=== PATIENT | female | born 1945 | race Caucasian/White ===

== ENCOUNTER 2018-10-25 10:59 | Inpatient (IN) ==
[2018-10-25] MEDS ORDERED: NS 1,000 ML IV ONE (11:17)
[2018-10-25] MEDS ORDERED: NS 500 ML IV ONE (11:18)
[2018-10-25 11:37] LABS: ALLEN TEST NO; BE 0.4 mmoll (-3.0-3.0); BLOOD TYPE ARTERIAL; HCO3-(ACT) 25.3 mmoll (20.0-26.0); METHB 1.3 % (0.0-1.5); O2(CT) 12.4 mL/dL (15.0-23.0); O2HB 96.8 % (95.0-99.0); PCO2(98.6) 27 mmHg (35-45); PO2(98.6) 96 mmHg (60-100); SAMPLE BLOOD; SAO2 99.1 % (95.0-100.0); pH(98.6) 7.53 (7.35-7.45)
[2018-10-25 11:38] LABS: MODALITY CANNULA
--- NOTE | 2018-10-25 11:54 | EKG Report ---
Test Performed on : 10/25/2018 11:40:56 AM Test Reason : SOB Blood Pressure : / mmHG Vent. Rate : 109 BPM Atrial Rate : 109 BPM P-R Int : 132 ms QRS Dur : 146 ms QT Int : 398 ms P-R-T Axes : 010 -54 108 degrees QTc Int : 535 ms Sinus tachycardia. Left axis deviation Left bundle branch block Abnormal ECG When compared with ECG of 05-JUN-2017 14:12, premature ventricular complexes. are no longer present Left bundle branch block is now present Criteria for Anterior infarct are no longer present Unconfirmed Result
[2018-10-25 11:56] LABS: URINE SOURCE CLEAN CATCH
[2018-10-25 12:00] LABS: BILIRUBIN URINE NEGATIVE (NEGATIVE); BLOOD URINE NEGATIVE (NEGATIVE); COLOR YELLOW; GLUCOSE URINE NEGATIVE (NEGATIVE); KETONE URINE NEGATIVE (NEGATIVE); LEUKOCYTES URINE TRACE (NEGATIVE); NITRITE URINE NEGATIVE (NEGATIVE); PROTEIN URINE TRACE mg/dL (NEGATIVE); SP GRAVITY URINE 1.021; TURBIDITY URINE HAZY (CLEAR); UROBILINOGEN URINE NORMAL (NORMAL)
[2018-10-25] MEDS ORDERED: TYLENOL PO ONE (12:07)
[2018-10-25 12:12] LABS: AGAP 12; ALB/GLOB RATIO 2.3; ALBUMIN 4.1 g/dL (3.5-5.0); ALKALINE PHOSPHATASE 50 U/L (32-104); BUN 14 mg/dL (8-22); CALCIUM 7.9 mg/dL (8.8-10.2); CHLORIDE 100 mmol/L (98-107); COSMO 270; CREATININE 0.5 mg/dL (0.5-0.9); ESTIMATED GFR > 60; GLUCOSE 129 mg/dL (70-104); GOT 18 U/L (10-30); GPT 13 U/L (10-36); SODIUM 134 mmol/L (136-145); TCO2 22 mmol/L (25-35); TOTAL BILIRUBIN 0.26 mg/dL (0.20-1.00); TOTAL PROTEIN 5.9 g/dL (6.3-8.3)
[2018-10-25 12:14] LABS: UR EPITHELIAL CELLS <10 /HPF (<10); URINE BACTERIA NEGATIVE /HPF; URINE RBC TNTC /HPF (<10); URINE WBC <10 /HPF (<10)
[2018-10-25 12:15] LABS: BASO# 0.03 X1000 (0.0-0.2); BASO% 0.7 % (0.0-0.8); EOS# 0.02 X1000 (0.0-0.7); EOS% 0.5 % (0.0-10.0); HEMATOCRIT 27.1 % (37.0-47.0); HEMOGLOBIN 8.7 g/dL (12.0-16.0); IMM GRAN# 0.04 X1000 (0.0-0.04); IMM GRAN% 0.9 % (0.0-0.5); LYMPH# 0.38 X1000 (1.2-3.4); LYMPH% 8.7 % (20.5-51.1); MCH 30.3 PG (27-31); MCHC 32.1 g/dL (33-37); MCV 94.4 FL (81-99); MONO# 0.53 X1000 (0.11-0.59); MONO% 12.2 % (1.7-9.3); MPV 9.5 FL (7.4-10.4); NEUT# 3.36 X1000 (1.4-6.5); PLT 313 X1000 (130-400); RBC 2.87 XMIL (4.2-5.4); WBC 4.36 X1000 (4.8-10.8)
[2018-10-25 12:18] LABS: URINE CASTS NONE SEEN; URINE CRYSTALS NONE SEEN; URINE SMALL ROUND CELLS TRANS PRESENT; URINE YEAST NONE SEEN
[2018-10-25 12:28] LABS: INR 1.02; PROTIME 13.5 Seconds (11.0-16.0)
[2018-10-25 12:29] LABS: PTT 32.2 Seconds (22.3-41.8)
--- NOTE | 2018-10-25 12:32 | PROVIDER DOCUMENTATION ---
This chart was entered by Marti Keith Scribe, acting as scribe for Edward Myers MD. HPI-Fever - General Chief Complaint: Fever Stated Complaint: DR ROBB REFERRED Time Seen by Provider: 10/25/18 11:14 Source: patient Allergies/Adverse Reactions: Patient Allergies Allergy/AdvReac Type Severity Reaction Status Date / Time tape Allergy RASH Uncoded 10/25/18 12:03 Home Medications: Home Medication List Medication Instructions Recorded Confirmed Last Taken Type Venlafaxine E.r. [Effexor Xr] 150 mg PO DAILY 05/29/17 11/09/17 07/09/17 04:00 History 150 Hydrocodone/APAP 7.5 mg/325 mg 1 ea PO Q4H PRN PRN #60 tab 06/13/17 11/09/17 07/08/17 20:00 Rx [[place]-7.5] 1 Alprazolam [Xanax] 0.25 mg PO TID PRN PRN 07/06/17 11/09/17 07/08/17 18:00 History 0.25 Doxycycline 100 mg PO DAILY 07/06/17 11/09/17 07/09/17 04:00 History 100 Meloxicam [Mobic] 7.5 mg PO DAILY 07/06/17 11/09/17 07/06/17 History 7.5 Methocarbamol [Robaxin-750] 750 mg PO BID PRN PRN 07/06/17 11/09/17 07/08/17 02:00 History 750 - History of Present Illness-Fever Nature of Presenting Problem: Patient is a 72 year old female who presents with fever, shortness of breath, cough, neck pain, and weakness. States symptoms started last night. Reports history of bilateral lung cancer and emphysema. Denies urinary symptoms. Fever Severity/Quality: reports: greater than 102 F Onset/Duration: reports: last night Timing: reports: still present Severity: reports: mild Context: reports: other (bilateral lung cancer) Cognitive Baseline: alert, oriented x3 Associated Symptoms: reports: back/neck pain (neck pain), cough, shortness of breath, weakness Similar Symptoms Previously?: Yes Recently seen or treated by another doctor?: Yes - Glascow Coma Score Best Eye Response ([place]): (4) open spontaneously Best Verbal Response ([place]): (5) oriented Best Motor Response ([place]): (6) obeys commands [place] Total: 15 Review of Systems - Adult - REVIEW OF SYSTEMS - ADULT Constitutional: reports: see HPI, fever. denies: chills, fatique Eyes: reports: no symptoms reported Ears, Nose, Mouth & Throat: reports: no symptoms reported Cardiovascular: reports: no symptoms reported Respiratory: reports: see HPI, cough, shortness of breath. denies: wheezing Gastrointestinal: reports: no symptoms reported Genitourinary: reports: no symptoms reported. denies: dysuria, hematuria, urinary retention Musculoskeletal: reports: see HPI, muscle weakness, neck pain. denies: back pain Integumentary: reports: no symptoms reported Neurological: reports: numbness (bilateral hands and feet). denies: headache/migraines, paresthesia Psychiatric: reports: no symptoms reported Endocrine: reports: no symptoms reported Hematologic/Lymphatic: reports: no symptoms reported Allergic/Immunologic: reports: no symptoms reported All Other Systems: Reviewed and Negative Past History - Adult - PAST MEDICAL HISTORY-ADULT Review of Records: reports: Old Records Reviewed, Nursing Assessment Review, Medications Reviewed, Social history reviewed & non-contributory. Major Childhood Illnesses: reports: denies history Cardiovascular: reports: denies history Respiratory: reports: cancer (bilateral lungs), other (emphysema) Gastrointestinal: reports: denies history Obstetrical/Gynecological: reports: denies history Genitourinary: reports: denies history Musculoskeletal: reports: denies history Neurological: reports: denies history Psychiatric: reports: denies history Endocrine/Immune: reports: denies history Other Conditions: reports: other cancer (stage 4 etastatic breast CA-mets to spine, lungs and bones) - PRIOR SURGERIES/PROCEDURES Surgical/Procedure History: reports: reviewed, not pertinent - IMMUNIZATION STATUS Childhood Immunizations: See Nurse Assessment Flu Vaccine: See Nurse Assessment - FAMILY HISTORY Family History: reviewed, not pertinent - SOCIAL HISTORY Smoking: denies Substance Use: denies Physical Exam-General - PHYSICAL EXAM-ADULT Initial Vital Signs Reviewed: Yes - CONSTITUTIONAL General Appearance: alert, mild distress, thin. negative: lethargic - EYES Eyes: PERRL/EOMI. negative: scleral icterus, sunken eyes - HEAD, EARS, NOSE, MOUTH & THROAT HENMT: normocephalic/atraumatic, moist mucous membranes, pharynx normal. negative: angioedema - RESPIRATORY Respiratory: chest non-tender, decreased breath sounds (left). negative: crackles, rhonchi - CARDIOVASCULAR Cardiovascular: normal peripheral pulses, regular rate, rhythm. negative: tachycardia - GASTROINTESTINAL (ABDOMEN) Abdominal Exam: normal bowel sounds, non tender, soft. negative: guarding - MUSCULOSKELETAL Extremity: normal inspection. negative: deformity, erythema - SKIN Integumentary: normal color, normal turgor, warm/dry. negative: cyanosis, jaundice - NEUROLOGIC Neurologic: grossly normal. negative: aphasia, facial droop - PSYCHIATRIC Psych/Mental Status: normal mood/affect, oriented x 3. negative: anxious Progress - PLAN OF CARE/RESULTS Progress/Plan/Lab Results: Vital Signs - 8 hr 10/25/18 11:05 10/25/18 11:16 10/25/18 11:18 Temperature 102.2 F H Pulse Rate 75 125 H 123 H Respiratory Rate 20 20 16 Blood Pressure 89/49 86/63 O2 Sat by Pulse Oximetry 97 87 L 87 L 10/25/18 11:38 10/25/18 11:50 10/25/18 11:51 Temperature Pulse Rate 110 H 108 H 106 H Respiratory Rate 18 14 15 Blood Pressure 86/63 96/62 O2 Sat by Pulse Oximetry 99 99 98 10/25/18 12:00 Temperature Pulse Rate 104 H Respiratory Rate 18 Blood Pressure O2 Sat by Pulse Oximetry 99 Laboratory Results - last 24 hr 10/25/18 10/25/18 10/25/18 11:24 11:30 11:30 WBC 4.36 L RBC 2.87 L Hgb 8.7 L Hct 27.1 L MCV 94.4 MCH 30.3 MCHC 32.1 L RDW Std Deviation 16.0 H Plt Count 313 MPV 9.5 Immature Gran % (Auto) 0.9 H Neut % (Auto) 77.0 H Lymph % (Auto) 8.7 L Gregg % (Auto) 12.2 H Eos % (Auto) 0.5 Baso % (Auto) 0.7 Immature Gran # (Auto) 0.04 Neut # (Auto) 3.36 Lymph # (Auto) 0.38 L Gregg # (Auto) 0.53 Eos # (Auto) 0.02 Baso # (Auto) 0.03 PT INR PTT (Actin FS) Specimen Type ARTERIAL Sample Site R BRACHIAL pH 7.53 H pCO2 27 L pO2 96 HCO3 25.3 Base Excess 0.4 Oxyhemoglobin 96.8 ABG O2 Sat (Calculated) 12.4 L ABG O2 Saturation 99.1 ABG Carboxyhemoglobin 1.00 ABG Methemoglobin 1.3 Nish Test NO A-a O2 Difference 70.0 Total Hemoglobin 9.0 L Lactate 1.20 Liter Flow 2.0 Blood Gas Modality CANNULA FiO2 % 28.0 Sodium Potassium Chloride Carbon Dioxide Anion Gap BUN Creatinine Estimated GFR/1.73 m2 BUN/Creatinine Ratio Glucose POC Glucose 121 H Calculated Osmolality Calcium Total Bilirubin AST ALT Alkaline Phosphatase Troponin T Total Protein Albumin Globulin Albumin/Globulin Ratio Plasma Lactate Urine Source Urine Color Urine Turbidity Urine pH Ur Specific [place] Urine Protein Ur Glucose (Stick) Ur Ketones (Stick) Urine Blood Urine Nitrite Urine Bilirubin Urobilinogen Dipstick Urine Leukocytes Urine WBC (Auto) Urine RBC (Auto) U Epithel Cells (Auto) Urine Bacteria (Auto) Urine Crystals Small Round Cells Urine Casts Urine Yeast-like Cells 10/25/18 10/25/18 10/25/18 11:30 11:30 11:30 WBC RBC Hgb Hct MCV MCH MCHC RDW Std Deviation Plt Count MPV Immature Gran % (Auto) Neut % (Auto) Lymph % (Auto) Gregg % (Auto) Eos % (Auto) Baso % (Auto) Immature Gran # (Auto) Neut # (Auto) Lymph # (Auto) Gregg # (Auto) Eos # (Auto) Baso # (Auto) PT INR PTT (Actin FS) Specimen Type Sample Site pH pCO2 pO2 HCO3 Base Excess Oxyhemoglobin ABG O2 Sat (Calculated) ABG O2 Saturation ABG Carboxyhemoglobin ABG Methemoglobin Nish Test A-a O2 Difference Total Hemoglobin Lactate Liter Flow Blood Gas Modality FiO2 % Sodium 134 L Potassium 4.0 Chloride 100 Carbon Dioxide 22 L Anion Gap 12 BUN 14 Creatinine 0.5 Estimated GFR/1.73 m2 > 60 BUN/Creatinine Ratio 28 Glucose 129 H POC Glucose Calculated Osmolality 270 Calcium 7.9 L Total Bilirubin 0.26 AST 18 ALT 13 Alkaline Phosphatase 50 Troponin T < 0.010 Total Protein 5.9 L Albumin 4.1 Globulin 1.8 Albumin/Globulin Ratio 2.3 Plasma Lactate 1.3 Urine Source Urine Color Urine Turbidity Urine pH Ur Specific [place] Urine Protein Ur Glucose (Stick) Ur Ketones (Stick) Urine Blood Urine Nitrite Urine Bilirubin Urobilinogen Dipstick Urine Leukocytes Urine WBC (Auto) Urine RBC (Auto) U Epithel Cells (Auto) Urine Bacteria (Auto) Urine Crystals Small Round Cells Urine Casts Urine Yeast-like Cells 10/25/18 10/25/18 11:30 11:49 WBC RBC Hgb Hct MCV MCH MCHC RDW Std Deviation Plt Count MPV Immature Gran % (Auto) Neut % (Auto) Lymph % (Auto) [place] % (Auto) Eos % (Auto) Baso % (Auto) Immature Gran # (Auto) Neut # (Auto) Lymph # (Auto) Gregg # (Auto) Eos # (Auto) Baso # (Auto) PT 13.5 INR 1.02 PTT (Actin FS) 32.2 Specimen Type Sample Site pH pCO2 pO2 HCO3 Base Excess Oxyhemoglobin ABG O2 Sat (Calculated) ABG O2 Saturation ABG Carboxyhemoglobin ABG Methemoglobin Nish Test A-a O2 Difference Total Hemoglobin Lactate Liter Flow Blood Gas Modality FiO2 % Sodium Potassium Chloride Carbon Dioxide Anion Gap BUN Creatinine Estimated GFR/1.73 m2 BUN/Creatinine Ratio Glucose POC Glucose Calculated Osmolality Calcium Total Bilirubin AST ALT Alkaline Phosphatase Troponin T Total Protein Albumin Globulin Albumin/Globulin Ratio Plasma Lactate Urine Source CLEAN CATCH Urine Color YELLOW Urine Turbidity HAZY Urine pH 6.0 Ur Specific [place] 1.021 Urine Protein TRACE A Ur Glucose (Stick) NEGATIVE Ur Ketones (Stick) NEGATIVE Urine Blood NEGATIVE Urine Nitrite NEGATIVE Urine Bilirubin NEGATIVE Urobilinogen Dipstick NORMAL Urine Leukocytes TRACE A Urine WBC (Auto) <10 Urine RBC (Auto) TNTC A U Epithel Cells (Auto) <10 Urine Bacteria (Auto) NEGATIVE Urine Crystals NONE SEEN Small Round Cells TRANS PRESENT Urine Casts NONE SEEN Urine Yeast-like Cells NONE SEEN Orders Category Date Time Status Cardiac Monitoring DIRECTED Care 10/25/18 12:00 Active Finger Stick Blood Sugar (ED) DIRECTED Care 10/25/18 11:15 Active Notify MD of + Sepsis Screen NOW Care 10/25/18 12:00 Active Notify Physician As Ordered Care 10/25/18 12:00 Active Nursing- Obtain EKG ONCE Care 10/25/18 11:15 Active Saline Loc NOW Care 10/25/18 11:15 Active ABG [RESP] Routine Lab 10/25/18 11:30 Completed BLOOD CULTURE [BLDCUL] Stat Lab 10/25/18 11:35 Received CBC WITH DIFF [HEME] Stat Lab 10/25/18 11:30 Completed CK PROFILE [SP CHEM] Stat Lab 10/25/18 11:30 Received COMPREHENSIVE METABOLIC PANEL [CHEM] Stat Lab 10/25/18 11:30 Completed LACTATE, PLASMA [CHEM] Lab 10/25/18 14:30 Uncollected LACTATE, PLASMA [CHEM] Lab 10/25/18 17:30 Uncollected LACTATE, PLASMA [CHEM] Stat Lab 10/25/18 11:30 Completed PROTIME WITH INR [COAG] Stat Lab 10/25/18 11:30 Completed PTT [COAG] Stat Lab 10/25/18 11:30 Completed TROPONIN T Stat Lab 10/25/18 11:30 Completed UA NIMS W/REFLEX CULT [URINALYSIS] Stat Lab 10/25/18 11:49 Completed URINE MANUAL MICROSCOPIC [URINALYSIS] Stat Lab 10/25/18 11:49 Completed 0.9% Sodium Chloride Inj [Ns] 1,000 ml Med 10/25/18 11:17 Discontinued IV 999 mls/hr 0.9% Sodium Chloride Inj [Ns] 500 ml Med 10/25/18 11:18 Discontinued IV 999 mls/hr Acetaminophen [Tylenol] Med 10/25/18 12:07 Discontinued 1,000 mg PO NOW ONE Oxygen Device Stat Oth 10/25/18 11:15 Active Oxygen Device Stat Oth 10/25/18 12:00 Active EKG [EKG] Stat Ther 10/25/18 11:15 Draft 1157 - Radiology spoke with Dr. Myers about patient. Radiology states patient had a 2 view chest xray earlier today that showed left perihilar mass similar in size and severe emphysema. 1214 - Dr. Haq in ED to see patient. Result Diagrams: 10/25/18 11:30 10/25/18 11:30 - EKG 1 Time of EKG reading by physician:: 11:40 EKG Read and Signed by:: Edward Myers EKG Interpretation (*Must complete 3 of following elements*): Abnormal Rate: 109 Rhythm: sinus tachycardia [place]: left QRS: LBB HI Interval: normal Comments: abnormal ECG Departure - Departure Date of Disposition Decision: 10/25/18 Time of Disposition Decision: 12:31 DIAGNOSIS: Metastatic breast cancer, Fever, Sepsis Disposition: ADMITTED INPATIENT 09 Certified Medical Emergency: Emergent Condition: Fair Referrals and Follow-Ups: Nish Haq MD [Primary Care Provider] - - Critical Care Note This patient required my direct & personal management of CC.: Yes Total Time (mins): 45 Critical Care Statement: This patient required my direct personal management to treat or rule out processes, the absence of which, could potentiallly result in sudden, clinically significant life or limb threatening deterioration. Attestation - Physician/ VERONICA Attestation The physician spent face to face time with patient:: Yes Advanced Practice Provider documentation review:: Supervising physician onsite and consulted in the evaluation and care of this patient. The physician did have a face to face encounter with the patient. This chart was documented by the indicated scribe, (Marti Keith, Aaron) and accurately reflects the services I performed and decisions made by me, Edward Myers MD, as attested by the provider's signature.
--- NOTE | 2018-10-25 13:07 | HISTORY AND PHYSICAL ---
HISTORY OF PRESENT ILLNESS: Ms. Castillo is a 72-year-old female who presented to the hospital. I think she had called Dr. Argentina King. She was having fever and was aching all over all of her joints, migratory arthralgia. Denies any real dysuria or cough or pleuritic pain. PAST MEDICAL HISTORY: 1. Stage IV metastatic breast cancer with metastasis to the lungs and spine and the bones, receiving palliative chemotherapy. Has had a lot of pain, especially in the cervical spine. 2. She has a history of gastroesophageal reflux. 3. History of depression. PAST SURGICAL HISTORY: 1. Right knee surgery. 2. Has had a left mastectomy with reconstruction. 3. Lumbar spine surgery x2. 4. Appendectomy. FAMILY HISTORY: Really noncontributory. No history of heart or lung issues. SOCIAL HISTORY: Currently she lives with her . She has lost weight over the last year and she is in more pain. She is still on palliative therapy under Dr. Argentina King's direction. ALLERGIES: No known drug allergies. REVIEW OF SYSTEMS: General: No weight gain or loss acutely, but has slowly lost some weight. Decreased appetite. HEENT: No change in her visual or hearing acuity. No neck pain. Respiratory: No increased work of breathing or dyspnea. Cardiovascular: No chest pain or tachy palpitation. Gastrointestinal: Unremarkable. Genitourinary: Unremarkable. Musculoskeletal/neurologic: Just general aching and malaise. Endocrinologic/hematologic: No significant history. PHYSICAL EXAMINATION: VITAL SIGNS: Temperature was a 102.2 degrees, pulse 104, respirations 18, blood pressure 96/62. HEENT: Pupils are equal round. LUNGS: Clear in all lung carrillo. CARDIOVASCULAR: Regular rhythm and rate without murmur or S3. ABDOMEN: Soft. SKIN: Warm and dry. I did not see any rash. No nasal mucosa lesions. NECK: Supple. I did not appreciate lymphadenopathy. LABORATORY DATA: White count is 4360, hematocrit 27, hemoglobin 8.7, platelet count 313,000. Sodium 134, potassium 4.0, chloride 100, BUN 14, creatinine 0.5, calcium 7.9. AST 18, ALT 13. Urinalysis unremarkable. She does have syn-nprhppyk-rm-count red blood cells, less than 10 white blood cells. Blood gas: pH of 7.53, pCO2 27, PO2 is 96, O2 saturation is 99%, this is on FiO2 of 28%. HOME MEDICATIONS: 1. Xanax 0.25 mg t.i.d. p.r.n. 2. Doxycycline 100 mg daily. 3. Hydrocodone 7.5 she takes q.4 hours. 4. Mobic 7.5 mg a day. 5. Robaxin 750 mg b.i.d. p.r.n. 6. Effexor XR 150 mg daily. ASSESSMENT AND PLAN: 1. She appears to have infection and I am going to treat her for possible sepsis as well. I am going to put her on cefepime and Zyvox I believe, although renal function looks good, so I will use vancomycin and cefepime. We will get blood cultures and urine culture. X-ray does not really reveal anything unchanged, but treat her for possible pneumonia. 2. Stage IV metastatic breast cancer and having a lot of pain. We will give her her hydrocodone and give her morphine as well. 3. Protein calorie malnutrition, losing weight. Encourage p.o. intake. Dr. Argentina King will be following and I will probably get Dr. Imtiaz Page as well to follow for Infectious Disease. cc: Nish Haq MD
[2018-10-25] MEDS ORDERED: ROBAXIN PO PRN (13:42)
[2018-10-25] MEDS ORDERED: VANCOMYCIN 1 GM/NS 1 GM/250 ML IVPB IV ONE (13:42)
[2018-10-25] MEDS ORDERED: TYLENOL PO PRN (13:42)
[2018-10-25] MEDS: ZOFRAN IV PRN ×2 (14:06→17:53)
[2018-10-25] MEDS: MORPHINE IV PRN ×3 (14:06→21:50)
[2018-10-25] MEDS: NS 1,000 ML IV SCH (14:35)
[2018-10-25] MEDS: MAXIPIME 2 GM in NS 100 ML IV SCH (14:55)
[2018-10-25] MEDS: VANCOMYCIN 1,000 MG in NS 250 ML IV SCH (15:37)
--- NOTE | 2018-10-25 17:36 | Diag Imaging Result Doc PS360 ---
EXAM: CT THORAX W/O CONTRAST 10/25/2018 HISTORY: possible pneumonia TECHNIQUE: This exam was performed using automated exposure control, adjustment of mA or kV according to patient size, and/or use of iterative reconstruction technique. COMMENT: The current study is compared with the previous examination of 06/01/2017. There are patchy opacities in both lower lobes particularly in the superior segment and parahilar region of the left lower lobe and left upper lobe. This is worse than on the previous study. There is increased density in the mediastinal fat particularly around the left hilum. The possibility of neoplastic disease cannot be excluded. There are bilateral pleural effusions. There are multiple lucencies in the liver which appear to be similar to the previous examination. There is scoliosis of the thoracolumbar spine with convexity to the right. There are multiple sclerotic lesions present particularly at T1 and T2 consistent with osteoblastic metastatic disease. This was also present at the time the previous study. IMPRESSION: Patchy pneumonia which may be superimposed on neoplastic disease, possibly also on post radiation change particularly in the left lung. Stable osseous metastatic disease. Worsened bilateral pleural effusions. Electronically signed by Vincent Fernando 10/25/2018 5:33 PM
--- NOTE | 2018-10-25 19:10 | INFECTIOUS DISEASE CONSULT REP ---
DATE: 10/25/2018 CONCLUSION: The patient is admitted to the hospital with fever and cough. I think she could have pneumonia. RECOMMENDATIONS: I agree with treating the patient with vancomycin and cefepime. I have ordered a noncontrasted CT scan of the chest also. PRESENT ILLNESS: The patient has been having cough but without producing any sputum. She has had a fever and she has been having pain in her bones and joints. Two days ago she had diarrhea but that is cleared. Her lab studies show a CBC with a white count of 4360, hemoglobin 8.7, platelet count 313,000. Blood gases show a pH of 7.53, a PO2 of 96 and a pCO2 of 27. The creatinine is 0.5. GFR is greater than 60. Liver function studies are normal. Urinalysis showed red cells but no white cells or bacteria. Blood and urine cultures are pending. 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 She has had a hysterectomy and bilateral salpingo-oophorectomy. PREVIOUS HOSPITALIZATIONS AND OPERATIONS: She has had 3 labor and deliveries, hysterectomy, bilateral salpingo-oophorectomy, a right total knee arthroplasty, a left mastectomy with reconstruction, lumbar spine surgery x2, appendectomy. The patient also had admission for a bowel obstruction secondary to adhesions. MEDICAL DISEASES: Positive for stage IV metastatic breast cancer with metastasis to the lungs, spine, and bones. The patient is receiving palliative chemotherapy. The patient also has gastroesophageal reflux disease, history of depression, hypertension which has cleared, and tachycardia. HISTORY/REVIEW OF SYSTEMS: Eyes and ears: She can hear and see okay. Neck: No stiffness. Respiratory: See present illness. Cardiac: No palpitations or chest pain other than the generalized pain she is having. GI: The patient 2 days ago had some diarrhea but it has cleared and she is not vomiting. : No dysuria or flank pain. FAMILY HISTORY: Positive for diabetes mellitus, hypertension, stroke and cancer. SOCIAL HISTORY: The patient lives with her . She does not have any pets at home. She does not smoke cigarettes, drink alcoholic beverages or abuse drugs. ALLERGIES: She has no known drug allergies. HOME MEDICATIONS: Include Xanax, aspirin, Xgeva, Monurol, furosemide, hydrocodone, Corlanor, Robaxin, MS Contin and Effexor. PHYSICAL EXAMINATION: Vital Signs: Temperature was 102, now it looks like it is 100.5, pulse is close to 100, respiratory rate is 30, blood pressure is 110/60. Patient is 5 feet 4 inches tall, weighs 103 pounds. General: This is a ill-appearing elderly female. She is in no acute distress. Head/eyes/ears/nose/throat: She can hear my spoken words and see near objects. I did not see any white patches in her mouth. Neck: No meningismus. Lungs: There were distant heart tones. I did not hear any rales or wheezes. Cardiovascular: Heart rate is regular. Abdomen: Soft and nontender. Neurologic: The patient is alert. She can move her extremities. There is no tremor. Her sensation is intact to touch. Her memory as regarding her medical history seems to be intact. Thank you for the consult. cc: Manuel Page MD
[2018-10-25] MEDS: NORCO-7.5 PO PRN ×2 (20:31→23:53)
[2018-10-25] MEDS: ROBAXIN PO PRN (20:32)
[2018-10-25] MEDS ORDERED: XOPENEX NEB INH ONE (21:08)
[2018-10-26] MEDS: MORPHINE IV PRN ×5 (02:06→23:16)
[2018-10-26] MEDS: MAXIPIME 2 GM in NS 100 ML IV SCH ×2 (02:12→14:29)
[2018-10-26] MEDS: ZOFRAN IV PRN ×2 (02:15→06:35)
[2018-10-26] MEDS: NS 1,000 ML IV SCH (03:02)
[2018-10-26] MEDS ORDERED: LASIX IV ONE (03:03)
[2018-10-26] MEDS ORDERED: XOPENEX NEB INH ONE (03:04)
[2018-10-26] MEDS ORDERED: PHENERGAN PO ONE (03:05)
[2018-10-26] MEDS ORDERED: AMBIEN PO ONE (03:07)
[2018-10-26] MEDS ORDERED: NS NEB INH SCH ×2 (03:15→09:15)
[2018-10-26 05:54] LABS: BASO# 0.03 X1000 (0.0-0.2); BASO% 0.5 % (0.0-0.8); EOS# 0.02 X1000 (0.0-0.7); EOS% 0.3 % (0.0-10.0); HEMATOCRIT 27.7 % (37.0-47.0); IMM GRAN# 0.04 X1000 (0.0-0.04); IMM GRAN% 0.6 % (0.0-0.5); LYMPH# 0.33 X1000 (1.2-3.4); MCHC 32.5 g/dL (33-37); MCV 95.5 FL (81-99); MONO# 0.67 X1000 (0.11-0.59); MONO% 10.2 % (1.7-9.3); MPV 9.5 FL (7.4-10.4); NEUT% 83.4 % (42.2-75.2); PLT 310 X1000 (130-400); RDW 16.5 % (11.5-14.5); WBC 6.59 X1000 (4.8-10.8)
[2018-10-26 06:17] LABS: AGAP 14; ALB/GLOB RATIO 1.7; ALBUMIN 4.1 g/dL (3.5-5.0); ALKALINE PHOSPHATASE 49 U/L (32-104); BUN 14 mg/dL (8-22); CALCIUM 7.1 mg/dL (8.8-10.2); CHLORIDE 101 mmol/L (98-107); COSMO 279; CREATININE 0.5 mg/dL (0.5-0.9); ESTIMATED GFR > 60; GLUCOSE 186 mg/dL (70-104); GOT 26 U/L (10-30); GPT 20 U/L (10-36); MAGNESIUM 1.8 mg/dL (1.5-2.7); POTASSIUM 3.9 mmol/L (3.5-5.1); SODIUM 137 mmol/L (136-145); TCO2 22 mmol/L (25-35); TOTAL BILIRUBIN 0.35 mg/dL (0.20-1.00); TOTAL PROTEIN 6.5 g/dL (6.3-8.3)
[2018-10-26] MEDS: EFFEXOR XR PO SCH (08:32)
[2018-10-26] MEDS: ROBAXIN PO PRN (08:32)
[2018-10-26] MEDS: XANAX PO PRN (08:32)
[2018-10-26] MEDS: MOBIC PO SCH ×2 (08:32→08:37)
[2018-10-26] MEDS: DOXYCYCLINE PO SCH (08:32)
[2018-10-26] MEDS ORDERED: DESYREL PO PRN (09:12)
[2018-10-26] MEDS: XOPENEX NEB INH SCH ×3 (09:49→21:43)
[2018-10-26] MEDS: MIRALAX PO SCH (09:57)
[2018-10-26] MEDS: LASIX IV SCH ×3 (09:57→21:32)
[2018-10-26] MEDS: LOVENOX SUBQ SCH (09:57)
--- NOTE | 2018-10-26 10:32 | PROGRESS NOTE ---
DATE: 10/26/2018 SUBJECTIVE: Mrs. Castillo was admitted to [facility] with acute respiratory failure with hypoxia secondary to suspected gram-negative pneumonia. She is an immunocompromised host, on oral chemotherapy due to metastatic breast cancer with metastases to the lungs, spine and bones. Her O2 saturations are marginal on supplemental O2. O2 saturations are ranging from 88 to 92 percent. She did have a low oxygen level of 86% last night. She had been given additional Lasix IV last night and was breathing more comfortably. She still continues with a persistent cough with scattered wheezing. She does have a longstanding history of chronic congestive heart failure secondary to systolic dysfunction. Her most recent echocardiogram demonstrated an ejection fraction of 20 to 30 percent. She reported that she had to sleep sitting up last night in order to breathe. OBJECTIVE: Vital signs: She is afebrile. Pulse 88, respirations 18, O2 saturation 100% on 4 L. Cardiovascular: Regular rate and rhythm. Lungs: Faint crackles in the bases with occasional end- expiratory wheezing with forced expiration. Abdomen: Soft, nontender, with active bowel sounds. Extremities: Trace ankle edema. ASSESSMENT AND PLAN: 1. Acute respiratory failure with hypoxia secondary to acute chronic obstructive pulmonary disease exacerbation complicated by suspected gram-negative pneumonia with sepsis. On admission, she was tachycardic, tachypneic and had a left shift. She had a confirmed pneumonia on CT scan. She is an immunocompromised host. We will resume her regular inhaler Bevespi 1 puff b.i.d. and add Xopenex nebulizer treatments every 6 hours. We will continue broad-spectrum antibiotics. We appreciate Dr. Page' assistance 2. Acute on chronic congestive heart failure secondary to systolic dysfunction. We will place her on a salt and fluid restricted diet. We will add Lasix 40 mg IV q.12 hours. We will supplement potassium as needed. I will check a portable chest x-ray today. cc: MD Nish Corbett MD
--- NOTE | 2018-10-26 11:19 | Diag Imaging Result Doc PS360 ---
EXAM: CHEST-PORTABLE 10/26/2018 HISTORY: pneumonia and chf TECHNIQUE: AP portable at 1104 COMMENT: There is increasing pleural effusion on the right and basilar opacity particularly in the right lower lobe compared to 10/25/2018. There continues to be prominence of the left hilum. IMPRESSION: Worsening pulmonary edema and/or pneumonia with right pleural effusion. Electronically signed by Vincent Fernando 10/26/2018 11:17 AM
[2018-10-26] MEDS: NORCO-7.5 PO PRN (11:48)
[2018-10-26] MEDS ORDERED: SALINE LOCK IV FLUID XX ONE (12:27)
[2018-10-26] MEDS: PHENERGAN IV PRN ×3 (14:45→22:56)
[2018-10-26] MEDS: VANCOMYCIN 1,000 MG in NS 250 ML IV SCH (15:33)
[2018-10-27] MEDS: MAXIPIME 2 GM in NS 100 ML IV SCH ×2 (03:06→14:29)
[2018-10-27] MEDS: XOPENEX NEB INH SCH ×5 (03:46→22:51)
[2018-10-27] MEDS: PHENERGAN IV PRN ×2 (05:06→14:48)
[2018-10-27] MEDS: MORPHINE IV PRN ×2 (05:20→14:48)
--- NOTE | 2018-10-27 08:01 | INFECTIOUS DISEASE PROGRESS NO ---
DATE: 10/27/2018 PRESENT ILLNESS: The patient has a bilateral pneumonia. MEDICATIONS: The patient is receiving a combination of cefepime, vancomycin, and doxycycline. This is day 2 of treatment with the patient's antibiotics. PHYSICAL EXAMINATION: Vital Signs: Temperature is 99.3 degrees, pulse 93, respirations 18, blood pressure is 84/49. General: This is a chronically ill-appearing, elderly female. She looks malnourished also. She does cough frequently during the exam but, unfortunately, she can not bring up any sputum. Head, Eyes, Ears, Nose, and Throat: She can hear my spoken words and see near objects. She does not have any white coating on her tongue. Neck: No pain with movement of the neck. Lungs: I heard right lower lobe rales. The left lung was clear. Cardiovascular: Heart rate is regular. Abdomen: Soft and nontender. Neurologic: The patient is alert. She is sitting in a chair, standing, and walking. Integument: No rash noted. LAB AND X-RAY: CBC today shows a white count of 6590, hemoglobin 9, platelet count 310,000. Creatinine is 0.5. GFR is greater than 60. Chest x-ray shows an increase in the right lower lobe infiltrate and pleural effusion. CT scan of the chest shows bilateral opacities. ASSESSMENT AND PLAN: The patient has pneumonia. I plan to continue with the current antibiotics, namely doxycycline, cefepime, and vancomycin. This is day 2 of treatment with the 3 agents. COMORBIDITIES: The patient has stage IV metastatic breast cancer with metastases to the lungs, spine, and bones. She is receiving palliative chemotherapy. The patient also has gastroesophageal reflux disease. cc: MD Nish Pool MD
[2018-10-27] MEDS: MIRALAX PO SCH (08:03)
[2018-10-27] MEDS: DOXYCYCLINE PO SCH (08:04)
[2018-10-27] MEDS: LASIX IV SCH (08:04)
[2018-10-27] MEDS: EFFEXOR XR PO SCH (08:04)
[2018-10-27] MEDS: LOVENOX SUBQ SCH ×2 (08:04→10:20)
[2018-10-27] MEDS: KLOR-CON PO SCH (08:04)
[2018-10-27 09:12] LABS: AGAP 11; BUN 12 mg/dL (8-22); CALCIUM 7.2 mg/dL (8.8-10.2); CHLORIDE 101 mmol/L (98-107); COSMO 273; CREATININE 0.5 mg/dL (0.5-0.9); ESTIMATED GFR > 60; GLUCOSE 125 mg/dL (70-104); POTASSIUM 3.5 mmol/L (3.5-5.1); SODIUM 136 mmol/L (136-145); TCO2 24 mmol/L (25-35)
--- NOTE | 2018-10-27 10:19 | PROGRESS NOTE ---
DATE: 10/27/2018 SUBJECTIVE: Ms. Castillo has a history of acute on chronic congestive heart failure secondary to systolic dysfunction. Her most recent echocardiogram demonstrated an ejection fraction of 20% to 30% percent. We increased the Lasix to 40 mg IV q.12 hours and placed her on a 1500 mL, fluid restricted diet. She is breathing much more comfortably. She has put out nearly 4 L of fluid over the past 36 hours. She is breathing much more comfortably. O2 saturations are ranging from 98% to 100% on 4 L of O2 per nasal cannula. She also was admitted to [facility] with an acute chronic obstructive pulmonary disease exacerbation complicated by gram-negative pneumonia with sepsis. Chest x-ray shows a persistent infiltrate in the right lower lobe. She is on broad-spectrum antibiotics. She continues with a persistent nonproductive cough. OBJECTIVE: Vital signs: Temperature 99.3 degrees, pulse 93, respiratory rate 18, blood pressure 84/49. Cardiovascular: Regular rate and rhythm. Lungs: Improved air movement throughout the upper lung carrillo. There are faint crackles in the bases. No wheezing noted. Abdomen: Soft, nontender, with active bowel sounds. Extremities: Without edema. ASSESSMENT AND PLAN: 1. Acute respiratory failure with hypoxia secondary to acute chronic obstructive pulmonary disease exacerbation complicated by gram-negative pneumonia with sepsis. Clinically, she continues to improve. We will continue supplemental O2, Xopenex nebulizer treatments, and broad-spectrum antibiotics. 2. Acute on chronic congestive heart failure secondary to systolic dysfunction. She has put out nearly 4 L of urine over the past 36 hours. Her blood pressure is a little bit too low. I am going to reduce the Lasix to 40 mg IV daily, and we will monitor her blood pressure closely. cc: MD Nish Corbett MD
[2018-10-27] MEDS: ROBAXIN PO PRN ×2 (10:20→20:07)
[2018-10-27] MEDS: NORCO-7.5 PO PRN ×2 (10:21→20:06)
[2018-10-27] MEDS: VANCOMYCIN 1,000 MG in NS 250 ML IV SCH (14:30)
[2018-10-27] MEDS: SODIUM CHLORIDE 0.9% INJ PRN (14:49)
[2018-10-27] MEDS: XANAX PO PRN (20:06)
[2018-10-28] MEDS: MAXIPIME 2 GM in NS 100 ML IV SCH ×2 (03:01→15:38)
[2018-10-28] MEDS: XOPENEX NEB INH SCH ×5 (03:04→23:03)
[2018-10-28] MEDS: PRILOSEC PO SCH (06:05)
--- NOTE | 2018-10-28 06:07 | Diag Imaging Result Doc PS360 ---
EXAM: CHEST-PORTABLE HISTORY: CHF AND PNEUMONIA TECHNIQUE: Portable chest single view COMPARISON: 10/26/2018 FINDINGS: The heart is enlarged. No change in the left perihilar mass. There is vascular distention. Tiny pleural effusions are present. The one on the right is slightly smaller. Decreased atelectasis in the right base. Persistent atelectasis or small infiltrate in the left base. Right upper lobe density is similar. IMPRESSION: Slight interval improvement. Electronically signed by Casey Bautista 10/28/2018 6:05 AM
[2018-10-28] MEDS: NORCO-7.5 PO PRN ×2 (06:32→20:42)
[2018-10-28] MEDS: ROBAXIN PO PRN ×2 (06:32→20:44)
[2018-10-28] MEDS: XANAX PO PRN ×2 (06:33→20:44)
--- NOTE | 2018-10-28 07:03 | INFECTIOUS DISEASE PROGRESS NO ---
DATE: 10/28/2018 PRESENT ILLNESS: The patient has bilateral pneumonia. MEDICATIONS: The patient is on day 3 with a combination of cefepime and vancomycin. She has been on doxycycline for 2 days. PHYSICAL EXAMINATION: Vital Signs: Temperature is 98.7 degrees, pulse 81, respirations 20, blood pressure 112/63. General: This is a chronically ill-appearing, elderly female. She also looks malnourished. She coughs frequently, but she cannot bring up the sputum. HEENT: She can hear my spoken words and see near objects. She does not have any white patches in her mouth. Neck: No pain with movement of the neck. Lungs: Bibasilar rales. Cardiovascular: Heart rate is regular. Abdomen: Soft and nontender. Neurologic: The patient is alert. She can ambulate. Integument: No rash. IMAGING AND LABORATORY DATA: Chest x-ray shows slight improvement. CBC shows a white count of 6590, hemoglobin 9, and platelet count 310,000. Creatinine is 0.5. GFR is greater than 60. Blood and urine cultures are negative. The patient's chest x-ray is improved. ASSESSMENT AND PLAN: The patient has pneumonia. I plan to continue cefepime and vancomycin. I am going to discontinue doxycycline. I have ordered a sputum for Gram stain and culture. I am going to repeat the patient's CBC tomorrow, and hopefully we can get the patient home soon because she is very ill, and I think has a very limited time left to live. COMORBIDITIES: The patient has stage IV metastatic breast cancer with metastases to the lungs, spine, and bone. She is receiving palliative chemotherapy. The patient also has gastroesophageal reflux disease. cc: MD Nish Pool MD
[2018-10-28] MEDS: LOVENOX SUBQ SCH (09:15)
[2018-10-28] MEDS: OXYCONTIN PO PRN (09:15)
[2018-10-28] MEDS: EFFEXOR XR PO SCH (09:15)
[2018-10-28] MEDS: KLOR-CON PO SCH (09:15)
[2018-10-28] MEDS: MIRALAX PO SCH (09:15)
[2018-10-28] MEDS: LASIX IV SCH (09:15)
--- NOTE | 2018-10-28 09:24 | PROGRESS NOTE ---
DATE: 10/28/2018 SUBJECTIVE: Ms. Castillo is feeling better. She got up to go to the bathroom, and since that time, she has been short of breath, but had been improving. OBJECTIVE: Vital Signs: Temperature 99 degrees, pulse 99, respirations 18, blood pressure 92/56. HEENT: Pupils are equal and round. Lungs: Clear in all lung carrillo. Cardiovascular: Regular rhythm and rate without murmur or S3. Urine output is 1200 mL. IMAGING: Her chest x-ray from today shows slight interval improvement. Heart is enlarged. No change in left parahilar mass. There is vascular distention. Tiny pleural effusions are present. The one on the right is slightly smaller. Decreased atelectasis. Persistent atelectasis or small infiltrate in the left base. Right upper lobe density is similar. ASSESSMENT AND PLAN: 1. This will be day 3 on combination of cefepime and vancomycin, and been on doxycycline for 2 days. She has pneumonia, and the plan is to discontinue the doxycycline, obtain a sputum stain for Gram stain and culture, and repeat the CBC tomorrow. Try and increase her activity. 2. Acute respiratory failure, hypoxemic, secondary to acute chronic obstructive pulmonary disease exacerbation, underlying metastatic breast cancer. 3. Acute on chronic congestive heart failure. We are diuresing her some. She is getting Lasix 40 mg intravenously daily. I am going to give her a little extra Lasix this morning. She wants to try her OxyContin in the morning and see how that does for pain control. 4. Metastatic breast cancer with a lot of skeletal metastasis and particular cervical pain. REVIEW OF LABORATORY DATA: Chemistries from yesterday are unremarkable. Creatinine is 0.5, sodium 136, potassium 3.5, chloride 101, BUN 12, creatinine 0.5. cc: Nish Haq MD
[2018-10-28] MEDS: NS NEB INH SCH (10:35)
[2018-10-28] MEDS: SODIUM CHLORIDE 0.9% INJ PRN (13:30)
[2018-10-28] MEDS: PHENERGAN IV PRN (13:30)
--- NOTE | 2018-10-28 14:50 | HEMO/ONC CONSULTATION ---
DATE: 10/28/2018 REQUESTING PHYSICIAN: Hospitalist service. REASON FOR STUDY: Metastatic cancer, patient known. HISTORY OF PRESENT ILLNESS: Ms Castillo is a 72-year-old female, who is known to us as we are currently treating her for metastatic carcinoma of suspected breast primary. The patient has been receiving Abraxane therapy in our office. Her last dose was on 10/17/2018. She has actually recently had a PET scan done on 10/24/2018, which actually shows interval resolution of some abnormal bone activity and no additional new findings. The patient reports that, on evening of 10/24/2018, she started to cough. Her symptoms became progressively worse. She actually contacted our office on October 25, complaining of a low-grade fever of 100.4, as well as some mild increased shortness of breath and cough. We advised the patient to go get a chest x-ray and then follow up with us in the office. Upon presentation to our office, however, she had a temperature 101.6 degrees, O2 saturation in the 70s, tachycardia, and hypotension. Patient was told to report immediately to the emergency department. She was subsequently admitted and is now in the [facility]. She has been admitted for sepsis. She is on multiple antibiotics, and Infectious Disease is on board. The patient has pneumonia. Seems to be improving. Patient reports she is also feeling better, and symptomatically she is improving. PAST MEDICAL HISTORY: 1. Stage IV metastatic cancer of suspected breast primary, but really of unknown primary. She has metastases to the lungs and spine. Currently on Abraxane, with her last treatment on 10/17/2018. She recently actually had radiation to C1 metastasis. 2. GERD. 3. Depression. 4. Pain related to her cancer. 5. Chemotherapy-induced anemia. 6. Congestive heart failure. PAST SURGICAL HISTORY: 1. Right knee surgery. 2. Left mastectomy with reconstruction. 3. Lumbar spine surgery. 4. Appendectomy. FAMILY HISTORY: No history of heart or lung diseases. SOCIAL HISTORY: Patient currently lives with her . She has a supportive family. She denies any alcohol or illicit drug or tobacco use currently. REVIEW OF SYSTEMS: A 12 point review of systems has been completed and is negative except for what is expressed in the HPI. PHYSICAL EXAMINATION: Vital Signs: Temperature 99.9 degrees, heart rate 88, respirations 17, blood pressure 88/60, O2 saturation 100% on 4 L nasal cannula. General: This is a thin female, lying in the hospital bed. Her and daughter are at bedside. She is in no acute distress. Head: Normocephalic, atraumatic. Eyes: Pupils equal, round, reactive. Ears, Nose, Throat, Neck, and Mouth: Oral mucosa appears to be normal. Gross auditory acuity is intact. Cardiovascular: S1, S2 heard. Respiratory: Coarse breath sounds noted throughout. Scant wheezing. Abdomen: Nondistended with normoactive bowel sounds noted. Musculoskeletal: No obvious bony abnormalities. Extremities: No edema. Neurologic: Patient is alert and oriented with no focal motor deficits. DIAGNOSTIC STUDIES: White blood cells 6.59, hemoglobin 9.0, platelet count 310,000. ASSESSMENT AND PLAN: 1. Metastatic carcinoma suspected breast primary. As per the HPI, patient recently had a PET scan that shows improvement. She has been receiving Abraxane as an outpatient. Her last dose was on October 17. Treatment will be on hold while the patient is in the hospital. We will evaluate her as an outpatient and discuss resuming treatment once she has recovered completely from her acute illness. 2. Pneumonia. Management per Dr. Page and Dr. Haq. Patient is currently on antibiotics. She is also on O2 support and receiving nebulizer treatments. 3. Acute respiratory failure secondary to her pneumonia. Management as per above. 4. Acute on chronic congestive heart failure. Continue diuresis per the primary team's direction. 5. Thoracic and cervical spine pain. Again, most recent PET scan shows no active disease in her spine. We will continue to monitor. Continue pain management as needed for the patient while she is in the hospital. We can follow up with further scanning in the future if her symptoms do not improve. We want to thank you for consulting us on Ms. Castillo. We will continue to follow along and adjust our treatment plan per her hospital course. Dictated by STEPHANIE Zuluaga for [place] King MD cc: MD Nish Sparks MD I have seen and examined the patient and the above note reflects my history, physical, assessment and plan. [place] THOMPSON
[2018-10-28] MEDS: VANCOMYCIN 1,000 MG in NS 250 ML IV SCH (15:38)
[2018-10-29] MEDS: XOPENEX NEB INH SCH ×4 (03:04→21:21)
[2018-10-29] MEDS: MAXIPIME 2 GM in NS 100 ML IV SCH ×2 (03:44→14:12)
[2018-10-29] MEDS: MORPHINE IV PRN (03:46)
[2018-10-29 05:55] LABS: BASO# 0.03 X1000 (0.0-0.2); BASO% 0.5 % (0.0-0.8); EOS# 0.19 X1000 (0.0-0.7); EOS% 3.1 % (0.0-10.0); HEMATOCRIT 23.5 % (37.0-47.0); HEMOGLOBIN 7.4 g/dL (12.0-16.0); IMM GRAN# 0.03 X1000 (0.0-0.04); IMM GRAN% 0.5 % (0.0-0.5); LYMPH% 6.5 % (20.5-51.1); MCH 29.7 PG (27-31); MCHC 31.5 g/dL (33-37); MCV 94.4 FL (81-99); MONO# 1.03 X1000 (0.11-0.59); MONO% 16.8 % (1.7-9.3); MPV 9.2 FL (7.4-10.4); NEUT# 4.44 X1000 (1.4-6.5); NEUT% 72.6 % (42.2-75.2); PLT 300 X1000 (130-400); RBC 2.49 XMIL (4.2-5.4); RDW 16.3 % (11.5-14.5); WBC 6.12 X1000 (4.8-10.8)
[2018-10-29] MEDS: PRILOSEC PO SCH (06:28)
[2018-10-29] MEDS: LASIX IV SCH (08:00)
[2018-10-29] MEDS: LOVENOX SUBQ SCH ×2 (08:00→08:49)
[2018-10-29] MEDS: KLOR-CON PO SCH (08:00)
[2018-10-29] MEDS: EFFEXOR XR PO SCH (08:00)
[2018-10-29] MEDS: OXYCONTIN PO PRN (08:00)
[2018-10-29] MEDS: MIRALAX PO SCH (08:00)
[2018-10-29] MEDS ORDERED: MEDROL DOSEPAK PO SCH (09:00)
--- NOTE | 2018-10-29 09:05 | PROGRESS NOTE ---
DATE: 10/29/2018 SUBJECTIVE: Ms. Castillo is feeling better. She is eating a little better. Breathing is comfortable. OBJECTIVE: She remains afebrile, temperature 98.9 degrees, pulse 90, respirations 16, blood pressure 117/86. Pupils are equal and round. Lungs are clear in all lung carrillo. Cardiovascular Examination: Regular rhythm and rate without murmur or S3. Abdomen: Soft. Skin: Warm and dry. No pedal edema. Her breathing is better this morning. She diuresed pretty well. She had 3100 mL. ASSESSMENT AND PLAN: 1. Stage IV metastatic cancer, breast primary suspected. Metastasis to the lungs and spine. Currently on Abraxane. The last treatment was on 10/17/2018. Recent PET scan was encouraging. 2. Pneumonia and bacteremia, presented with sepsis. Doing much better. We will check a chest x- ray in the morning. Switch her to oral antibiotics. Hopefully, she can go home. 3. Acute respiratory failure secondary to pneumonia which improved. 4. Acute on chronic congestive heart failure and responded to diuresis. Volume status looks good this morning. 5. Thoracic and cervical spine pain. PET scan showed no active disease in her spine but still has a good deal of pain. She is on muscle relaxers and pain medicines, so we will get another chest x-ray in the morning. REVIEW OF ORDERS: Looking at her orders, she is on Xanax 0.25 mg p.o. t.i.d. p.r.n., Lasix 40 mg a day, DuoNebs 1.25 mg IV q.6 hours, Maxipime 2 g IV q.12, Robaxin 750 mg p.o. b.i.d. p.r.n., oxycodone ER 15 mg p.o. q.12 hours p.r.n., polyethylene glycol 17 g daily, Desyrel 25 mg at bedtime, vancomycin 1 g IV q.24 hours, and Effexor ER 150 mg p.o. daily. cc: Nish Haq MD
--- NOTE | 2018-10-29 09:07 | INFECTIOUS DISEASE PROGRESS NO ---
DATE: 10/29/2018 PRESENT ILLNESS: The patient has bilateral pneumonia. MEDICATIONS: The patient has been receiving cefepime and vancomycin now for 3 days. PHYSICAL EXAMINATION: Vital Signs: Temperature is 98.9 degrees, pulse 90, respirations 16, blood pressure 117/86. The patient weighs 100 pounds. General: This is a chronically ill-appearing, elderly female. She looks malnourished. She seems to be coughing less this morning than she did yesterday. Head/eyes/ears/nose/throat: She can hear my spoken words and see near objects. I did not see any white coating on her tongue. Neck: No meningismus. Lungs: There were bibasilar rales. Cardiovascular: Heart rate is regular. Abdomen: Soft and nontender. Neurologic: The patient is alert. She can ambulate to the bathroom. Integument: No rash. LAB AND X-RAY: There is no new radiographic study today. The patient's sputum Gram stain a showed white cells but no bacteria. Creatinine is 0.5, GFR is greater than 60. CBC shows a white count of 6120, hemoglobin 7.4, and platelet count 300,000. ASSESSMENT AND PLAN: Patient has pneumonia and for now, I plan to continue cefepime and vancomycin. The patient does have a sputum culture pending and hopefully we will be able to determine what is causing the patient's pneumonia. I am going to order a chest x-ray for this afternoon and then tomorrow. If the patient is doing well and the x-ray shows no worsening and hopefully some improvement, Dr. Haq and I think the patient can go home on oral antibiotics. Most likely I will send her home on doxycycline 50 mg p.o. every 12 hours and Ceftin 250 mg p.o. every 12 hours for any 7 to 10 more days. COMORBIDITIES: The patient has stage IV metastatic breast cancer with metastases to the lungs, spine, and bone. She is receiving palliative chemotherapy. The patient also has gastroesophageal reflux disease. cc: MD Nish Pool MD
[2018-10-29] MEDS: NS NEB INH SCH ×2 (09:51→15:45)
[2018-10-29] MEDS: NORCO-7.5 PO PRN ×2 (11:03→20:40)
[2018-10-29] MEDS: XANAX PO PRN ×2 (11:03→20:38)
[2018-10-29] MEDS: ROBAXIN PO PRN ×2 (11:03→20:41)
[2018-10-29] MEDS: MEDROL PO SCH ×3 (12:00→20:38)
--- NOTE | 2018-10-29 15:01 | Diag Imaging Result Doc PS360 ---
EXAM: CHEST-1 VIEW 10/29/2018 HISTORY: pneumonia TECHNIQUE: AP portable at 1454 COMMENT: There is degenerative change in the acromioclavicular joint on the right. The opacity seen in the medial right upper lobe on 10/28/2018 has diminished. There is better expansion of the left lower lobe. There is still some increased interstitial opacity particularly in the right base. The retrocardiac region of left lower lobe has also improved. IMPRESSION: Improved pneumonia particularly in the right upper lobe. The possibility of interstitial pulmonary edema cannot be excluded. Electronically signed by Vincent Fernando 10/29/2018 2:59 PM
--- NOTE | 2018-10-29 15:52 | HEMO/ONC PROGRESS NOTE ---
DATE: 10/29/2018 SUBJECTIVE: Ms. Castillo is lying in hospital bed. She is in no acute distress. Her is at bedside. OBJECTIVE: Vital Signs: Temperature 98.7 degrees, heart rate 93 respirations 15 blood pressure 85/70, O2 saturation 100% on 3 L nasal cannula. Cardiovascular: S1, S2 heard. Regular rhythm. Respiratory: Coarse breath sounds throughout. Normal respiratory effort. Gastrointestinal: Abdomen is nondistended. Extremities: There is no edema. DIAGNOSTIC STUDIES: White blood cells 6.12 hemoglobin 7.4, hematocrit 23.5, platelet count 300,000. No CMP is in today. ASSESSMENT AND PLAN: 1. Metastatic carcinoma, presumed to be breast primary. The patient's treatment on hold. We will evaluate the patient and consider resuming treatment once she is out of the hospital and recovered. 2. Pneumonia. She is improving. Continue IV antibiotics per Dr. Page' direction. 3. Acute respiratory failure secondary to pneumonia. Seems to also be improving. Continue current management. 4. Acute on chronic congestive heart failure. She has diuresed well at this point. Management continues to be per Dr. Haq and his team. 5. Thoracic and cervical spine pain. We recently did a PET scan which does not show any new or active disease in her thoracic and cervical spine. We will continue to monitor this as an outpatient. She is receiving pain medications and they are adjusting dose as needed. Dictated by STEPAHNIE Zuluaga for Argentina King MD cc: MD Nish Sparks MD I have seen and examined the patient and the above note reflects my history, physical, assessment and plan. [place] THOMPSON
[2018-10-29] MEDS ORDERED: VANCOMYCIN 1,000 MG in NS 250 ML IV SCH (18:00)
[2018-10-29] MEDS: PHENERGAN IV PRN (20:41)
[2018-10-29] MEDS: SODIUM CHLORIDE 0.9% INJ PRN (20:42)
[2018-10-30] MEDS: MAXIPIME 2 GM in NS 100 ML IV SCH (03:28)
[2018-10-30] MEDS: XOPENEX NEB INH SCH ×2 (03:39→09:18)
[2018-10-30] MEDS: PRILOSEC PO SCH (06:02)
--- NOTE | 2018-10-30 07:03 | INFECTIOUS DISEASE PROGRESS NO ---
DATE: 10/30/2018 PRESENT ILLNESS: The patient has bilateral pneumonia. She is complaining of her tongue hurting and I think she is beginning to get a white coating on her tongue which would be due to oral candidiasis. MEDICATIONS: The patient has been on cefepime and vancomycin for 4 days. PHYSICAL EXAMINATION: Vital Signs: Temperature is 98 degrees, pulse 91, respirations 16, blood pressure 87/57. General: This is a chronically ill-appearing, elderly female. She also looks malnourished. She is continuing to cough. Head/eyes/ears/nose/throat: She can hear my spoken words and see near objects. Her tongue now seems to be developing a white coating. Neck: No pain with movement of her neck. Neck: Thorax patient has a Port-A-Cath in place on the left side. The site is not erythematous or swollen. Lungs: There were bibasilar rales. Cardiovascular: Heart rate is regular. Abdomen: Soft and nontender. Neurologic: The patient is alert. She can ambulate to the bathroom. Integument: No rash. LAB AND X-RAY: Chest x-ray shows improvement in the patient's infiltrates. Her CBC shows a white count of 6120, hemoglobin 7.4, and platelet count 300,000. Creatinine is 0.5, GFR is greater than 60. Sputum culture is negative. ASSESSMENT AND PLAN: Patient has pneumonia and oral candidiasis. I have electronically sent prescriptions to the patient's pharmacy she uses for the following: Ceftin 250 mg p.o. every 12 hours for 10 more days, doxycycline 50 mg p.o. every 12 hours for 10 days and Mycelex troches for the patient to put on her tongue and let melt every 8 hours for 10 days also. I would suggest having the having the patient follow up with her physician, Dr. Nish Haq, in 10 days and possibly besides examining the patient, she could have a follow-up chest x-ray. COMORBIDITIES: Stage IV metastatic breast cancer with metastases to the lungs, spine, and bone. The patient also is receiving chemotherapy and she also has gastroesophageal reflux disease. cc: MD Nish Pool MD
[2018-10-30 08:19] VITALS: BP 99/64
[2018-10-30] MEDS: LASIX IV SCH (08:30)
[2018-10-30] MEDS: KLOR-CON PO SCH ×2 (08:31→08:35)
[2018-10-30] MEDS: MIRALAX PO SCH ×2 (08:31→08:36)
[2018-10-30] MEDS: MEDROL PO SCH (08:31)
[2018-10-30] MEDS: EFFEXOR XR PO SCH (08:36)
[2018-10-30] MEDS: OXYCONTIN PO PRN (08:47)
[2018-10-30] MEDS ORDERED: MYCOSTATIN SUSP PO SCH (09:00)
--- NOTE | 2018-10-30 09:26 | DISCHARGE SUMMARY ---
ADMISSION DATE: 10/25/2018 DISCHARGE DATE: 10/30/2018 HISTORY OF PRESENT ILLNESS: This 72-year-old female patient of mine presented to the hospital on 10/25/2018. She had contacted Dr. Argentina King. She was having fever and aching all over, and appeared to have pneumonia with sepsis. PAST MEDICAL HISTORY: 1. Stage IV metastatic cancer. We are presuming it is breast cancer, unknown primary, and she has metastasis to her lung, spine and bones, receiving palliative chemotherapy. She has quite a bit of pain, especially in the cervical spine. 2. History of gastroesophageal reflux. 3. History of depression. PAST SURGICAL HISTORY: 1. Right knee surgery. 2. Left mastectomy and reconstruction. 3. Lumbar spine surgery x2. 4. Appendectomy. ADMISSION DIAGNOSES: 1. Sepsis, suspected pneumonia bacteremia. Put on vancomycin and cefepime. Renal function looked good, and treating for primary pulmonary organisms. 2. Stage IV metastatic cancer, presumed to be breast cancer. 3. Protein calorie malnutrition. 4. Chronic pain. HOSPITAL COURSE: The patient had a CT of the chest on 10/25 patchy pneumonia, which may be superimposed on neoplastic disease, possibly also postradiation changes, particularly in the left lung. Stable osseous metastasis, worsened bilateral pleural effusions. Infectious Disease was asked to follow and he treated the patient with vancomycin and cefepime and agreed with those antibiotics. She showed steady improvement and followed by Hematology. The patient's treatment is on hold. And felt the patient had improved clinically well enough to let her go home on 10/30/2018. She was eating fairly well. Pain controlled with her [place] and OxyContin. We tried giving her some OxyContin in the morning, that seemed to help. So we will discharge her home on 10/30/2018. DISCHARGE MEDICATIONS: Xanax 0.25 mg t.i.d., [place] 7.5 q. 4 hours p.r.n. breakthrough pain, Robaxin 750 mg b.i.d. p.r.n. We gave her a Medrol Dosepak, which seemed to help. Prilosec 40 mg a day, OxyContin 15 mg q. 12 hours p.r.n., MiraLAX 17 g a day, Klor-Con 20 mEq daily, and Desyrel 25 mg at bedtime p.r.n., Effexor XR [address] Page had sent in her antibiotics and also some Mycelex as she was developing a little bit of oral thrush. So, Ceftin 250 mg p.o. q. 12 hours for 10 more days, doxycycline 50 mg p.o. q. 12 hours for 10 days, Mycelex troches put on her tongue and melt every 8 hours for 10 days. DISCHARGE DISPOSITION: She is going to follow up with me in about 10 days, and we will get a repeat chest x-ray. cc: Nish Haq MD
[2018-10-30] MEDS: LOVENOX SUBQ SCH (10:05)
== END 2018-10-30 10:08 | disposition home or self-care (01) | DRG 871 ==
LOC: ED 10:59 → 3S 14:05
PROVIDERS: ADMIT Emergency Medicine; ATTEND Emergency Medicine